=== PATIENT | female | born 1975 | race Caucasian/White ===

== ENCOUNTER 2018-10-12 00:29 | Emergency (ER) | payer MEDICAID ==
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
== END 2018-10-12 01:04 | disposition home or self-care (01) ==
LOC: ER 00:29 → EDBD 00:29 → ER 01:04
DX: S02.2XXA Fracture of nasal bones, initial encounter for closed fracture (principal); J44.9 Chronic obstructive pulmonary disease, unspecified; Z98.890 Other specified postprocedural states; Z88.5 Allergy status to narcotic agent; W50.0XXA Accidental hit or strike by another person, initial encounter; Y93.89 Activity, other specified; Y92.89 Other specified places as the place of occurrence of the external cause; Y99.8 Other external cause status
CPT/HCPCS: Z7502